=== PATIENT | female | born 1950 | race Caucasian/White ===

== ENCOUNTER 2023-12-24 12:38 | Outpatient (CLI) | payer MEDICARE, SELFPAY ==
--- NOTE | 2023-12-24 12:44 | CA_ITS ---
APPROVED REPORT EXAM: Comprehensive 2D, Doppler, and color-flow Echocardiogram Image Scientist: Karlie Matt RDCS Ht: 5 ft 6 in Wt: 199lbs BSA: 2.00 BP: 149/98 mmHg Indications: SOA,EDEMA,SURGICAL PRE-OP ASSESSMENT FOR HIP SURGERY M-Mode Dimensions RVDd 1.45 cm (0.9-2.6) LA Diam 4.22 cm (1.9-4.0) LVDd 5.79 cm (3.5-5.7) LVDs 4.00 cm (3.5-5.7) IVSd 1.19 cm (0.6-1.1) PWd 1.11 cm (0.6-1.1) EF (Teich) 57.80% FS 30.90% EDV (Teich) 165.90 mL ESV (Teich) 70.00 mL LV Diastology E Decel Time 227 (160-240 msec) E/A Ratio 0.8 Mitral Valve MV E Max Benson. 124.0 (40-130 cm/s) MV A Velocity 154.0 (40-130 cm/s) E/A Ratio 0.80 MV PHT 66.0 ms Left Ventricle The left ventricle is normal size. The left ventricular systolic function is normal. The left ventricular ejection fraction is within the normal range. There is increased LV wall thickness. Proximal septal thickening is noted. No LVOT obstruction at rest. There is normal LV segmental wall motion. The left ventricular diastolic function is normal. LVEF is 60%. Right Ventricle The right ventricle is normal size. The right ventricular systolic function is normal. Atria The left atrium is mildly dilated. The right atrium size is normal. There is no Doppler evidence of interatrial shunt. Aortic Valve Aortic valve is mildly thickened. Trace aortic regurgitation. Mitral Valve There is systolic anterior motion (REINA) of the mitral valve leaflets. Mild mitral annular calcification. The mitral valve leaflets are mildly thickened. No evidence of mitral valve stenosis. Trace mitral regurgitation. Tricuspid Valve The tricuspid valve leaflets are thin and pliable. Trace tricuspid regurgitation. There is insufficient TR jet to estimate RVSP. Pulmonic Valve The pulmonary valve is normal in structure. Trace pulmonic regurgitation. Great Vessels The aortic root is normal in size. The ascending aorta is not well-visualized. IVC is normal in size and collapses >50% with inspiration. Pericardium There is no pericardial effusion. Other Information Study Quality: Fair Conclusion Normal biventricular systolic function. No significant valvular stenosis or regurgitation. There is systolic anterior motion (REINA) of the MV leaflets. No LVOT obstruction at rest. Electronically signed by : Bibiana Higgins MD 12/24/2023 13:57:37
== END 2023-12-24 23:59 | disposition home or self-care (01) ==
LOC: RT 12:40
PROVIDERS: PCP Nurse Practitioner; Visit Provider Internal Medicine
DX: Z01.818 Encounter for other preprocedural examination (principal); R07.9 Chest pain, unspecified; R06.02 Shortness of breath; R60.9 Edema, unspecified
CPT/HCPCS: 93306